=== PATIENT | male | born 1955 | race Caucasian/White ===

== ENCOUNTER 2024-03-22 14:21 | Observation (INO) ==
[2024-03-22 16:00] LABS: ABS Lymphocytes 0.9 10^3/uL (1.0-4.8); ABS Monocytes 0.6 10^3/uL (0.0-1.1); ABS Neutrophils 6.3 10^3/uL (1.5-7.6); Eosinophil % 0.2 %; Hematocrit 20.4 % (38-53); Hemoglobin 5.7 g/dL (13.2-16.3); Lymphocyte % 11.6 %; Mean Corpuscular Hemoglobin 14.1 pg (27-33); Mean Corpuscular Hgb Conc 27.9 g/dL (31-36); Mean Corpuscular Volume 50.8 fL (80-97); Mean Platelet Volume 8.4 fL (7.5-11.2); Platelet Count 265 10^3/uL (150-450); Red Blood Count 4.02 10^6/uL (4.06-5.63); Red Cell Distribution Width 20.6 % (12-17); White Blood Count 7.9 10^3/uL (3.6-10.2)
[2024-03-22 16:24] LABS: ALT 11 U/L (7-52); AST 14 U/L (13-39); Albumin 4.2 g/dL (3.2-5.2); Albumin/Globulin Ratio 1.7 (1-3); Alkaline Phosphatase 68 U/L (35-149); Anion Gap 5 mmol/L (2-16); Blood Urea Nitrogen 19 mg/dL (6-24); CO2 Carbon Dioxide 30 mmol/L (22-32); Chloride 102 mmol/L (101-111); Globulin 2.5 g/dL (2-4); Glucose 142 mg/dL (70-100); Potassium 3.6 mmol/L (3.5-5.0); Sodium 137 mmol/L (135-145); Total Bilirubin 1.5 mg/dL (0.2-1.0); Total Protein 6.7 g/dL (6.4-8.9)
[2024-03-22 16:35] LABS: % Iron Saturation 4 % (15-55); .Transferrin 387 mg/dL (203-362); Iron < 20 ug/dL (50-212); Total Iron Binding Capacity 542 mcg/dL (250-450); Unsaturated Iron Binding 522 ug/dL
[2024-03-22 16:56] LABS: Ferritin 2.1 ng/mL (24-336)
[2024-03-22 17:00] LABS: Folate > 20.00 ng/mL (5.90-24.80); Vitamin B12 157 pg/mL (180-914)
[2024-03-22 17:38] LABS: Immature Retic Fraction 0.47
[2024-03-22 17:39] LABS: RBC Retic Count 4.16 10^6/ul (4.06-5.63)
[2024-03-22 17:40] LABS: Corrected Retic Count 0.4 % (0.5-2.2); Hematocrit for Retic CNT 21.2 % (38-53)
[2024-03-22 19:43] LABS: Activated Partial Thrombo Time 25.6 seconds (26.0-38.0); INR 1.11 (0.85-1.14)
[2024-03-22] MEDS: Cyanocobalamin INJ 1,000 MCG/ML VIAL 1 ML VIAL IM ONE (23:11)
[2024-03-22] MEDS: Ferric Gluconate IV 250 MG in NS 0.9% 250 ml 200 ML IVPB SCH (23:17)
[2024-03-23 00:52] LABS: Hemoglobin 7.1 g/dL (13.2-16.3); Mean Corpuscular Hemoglobin 16.7 pg (27-33); Mean Corpuscular Hgb Conc 29.6 g/dL (31-36); Mean Corpuscular Volume 56.2 fL (80-97); Mean Platelet Volume 8.1 fL (7.5-11.2); Platelet Count 247 10^3/uL (150-450); Red Blood Count 4.27 10^6/uL (4.06-5.63); Red Cell Distribution Width 22.4 % (12-17); White Blood Count 6.9 10^3/uL (3.6-10.2)
[2024-03-23 06:09] LABS: ABS Eosinophils 0.1 10^3/uL (0.0-0.5); ABS Lymphocytes 1.3 10^3/uL (1.0-4.8); ABS Monocytes 0.5 10^3/uL (0.0-1.1); ABS Neutrophils 3.1 10^3/uL (1.5-7.6); Hemoglobin 7.2 g/dL (13.2-16.3); Mean Corpuscular Hemoglobin 16.7 pg (27-33); Mean Corpuscular Volume 55.7 fL (80-97); Mean Platelet Volume 8.4 fL (7.5-11.2); Platelet Count 228 10^3/uL (150-450); Red Blood Count 4.31 10^6/uL (4.06-5.63); Red Cell Distribution Width 22.4 % (12-17); White Blood Count 5.2 10^3/uL (3.6-10.2)
[2024-03-23 06:24] LABS: Magnesium 1.9 mg/dL (1.9-2.7); Phosphorus 3.4 mg/dL (2.5-5.0)
[2024-03-23] MEDS: FLUTICAS/UMECLI/VILANT 100-62.5-25 MDI (NF) INH SCH (07:18)
[2024-03-23 09:38] VITALS: BP 129/79
[2024-03-23] MEDS: Cyanocobalamin INJ 1,000 MCG/ML VIAL 1 ML VIAL IM ONE (11:34)
== END 2024-03-23 12:05 | disposition home or self-care (01) ==
LOC: EDHOLD 14:21 → ED 14:21 → MEDTELE 18:10
PROVIDERS: ADMIT Internal Medicine; ATTEND Internal Medicine